=== PATIENT | male | born 1950 | race Caucasian/White ===

== ENCOUNTER → 2017-03-30 | Outpatient (CLI) | payer MEDICARE ==
[~2017-03-30] MED LIST: DESO60OI10 TP; DZPM2T PO; FLC1T PO; FLUT60LO2 TP; LORA10TA7 PO; METO-272 PO; MTP50T PO; ONDA8TAB9 PO; PNT40TEC PO; THIA100T12 PO
== END ==
LOC: CARD 09:39
PROVIDERS: ATTEND Physician Assistant
DX: I35.1 Nonrheumatic aortic (valve) insufficiency (principal); I65.23 Occlusion and stenosis of bilateral carotid arteries; I10 Essential (primary) hypertension; R00.0 Tachycardia, unspecified
CPT/HCPCS: 93306

== ENCOUNTER → 2018-02-27 | Outpatient (CLI) | payer MEDICARE ==
--- NOTE | 2018-02-27 11:34 | Diagnostic Imaging Report ---
INDICATION: Dizziness and dyspnea. PA and lateral views of the chest were obtained. FINDINGS: The heart size, mediastinal configuration, and pulmonary vascularity are within normal limits. There is no pleural effusion, pneumothorax, or pneumonia. The osseous structures are unremarkable. IMPRESSION: No acute cardiopulmonary abnormality. Dictated by: Dictated on workstation # [id number]
== END ==
LOC: RAD 09:15
PROVIDERS: ATTEND Internal Medicine Cardiovascular Disease
DX: I65.23 Occlusion and stenosis of bilateral carotid arteries (principal); F10.10 Alcohol abuse, uncomplicated; R06.00 Dyspnea, unspecified; I10 Essential (primary) hypertension; R00.0 Tachycardia, unspecified; Z72.0 Tobacco use
CPT/HCPCS: 71046

== ENCOUNTER → 2019-03-11 | Outpatient (CLI) | payer MEDICARE | LOC: CARD 13:21 | PROVIDERS: ATTEND Internal Medicine Cardiovascular Disease | DX: I08.2 Rheumatic disorders of both aortic and tricuspid valves (principal); I65.29 Occlusion and stenosis of unspecified carotid artery; I10 Essential (primary) hypertension | CPT/HCPCS: 93306 ==

== ENCOUNTER → 2019-03-13 | Outpatient (CLI) | payer MEDICARE ==
[~2019-03-13] VITALS: Ht 170 cm; Wt 67.0 kg
[~2019-03-13] MED LIST changes: +CATHETER FLUSH 10 ML SYR IV PRN
[2019-03-13 09:41] VITALS: BP 139/95
--- NOTE | 2019-03-13 12:22 | STRESS TEST ---
DATE OF SERVICE: 03/13/2019 EXERCISE MYOVIEW STRESS TEST REPORT REFERRING PHYSICIAN: Dr. Tobin Fragoso. Baseline heart rate is 54. Baseline blood pressure 138/98. Baseline EKG is sinus rhythm with no ischemic changes. In summary, the patient was injected with 10.74 mCi of technetium-99 Myoview and the resting images were obtained. Then, the patient started exercising with a baseline heart rate, blood pressure and EKG mentioned above. The patient was able to exercise for a total of 6 minutes and 30 seconds on standard Stefan protocol. With peak exercise level, EKG was showing [address] depression in II, III, aVF. Blood pressure was 169/81. During recovery, heart rate and blood pressure returned to baseline. EKG returned to baseline. The resting and stress images were reviewed and compared in the short axis, horizontal long axis, and vertical long axis views. Review of the images showed diaphragmatic attenuation with decreased uptake involving the inferior wall, inferoapical segment and inferoseptum with subtle reversibility was noted. SSS is 5, SDS 1, TID value 1.01. On the gated images, the left ventricle appeared to be normal size with normal contractility. Calculated ejection fraction 61%. CONCLUSION: 1. Fair exercise tolerance, a total of 6 minutes 30 seconds on standard Stefan protocol, total of 7.7 METS achieving 95% of maximum expected heart rate. 2. Appropriate heart rate and blood pressure response to exercise returned to baseline during recovery. 3. Nondiagnostic EKG changes with exercise returned to baseline during recovery. 4. Diaphragmatic attenuation with typical male pattern. No significant ischemia or infarction was noted on SPECT images. 5. Normal left ventricular size with normal contractility. Calculated ejection fraction 61%. Job ID: [id number] DocumentID: [id number] Dictated Date: 03/13/2019 11:24:49 Commissary Worker Date: 03/13/2019 12:21:50 Dictated By: KALPESH RUSSELL MD
== END ==
LOC: CARD 07:25
PROVIDERS: ATTEND Internal Medicine Cardiovascular Disease
DX: I35.1 Nonrheumatic aortic (valve) insufficiency (principal); I65.29 Occlusion and stenosis of unspecified carotid artery; I10 Essential (primary) hypertension
CPT/HCPCS: 78452; 93017

== ENCOUNTER 2019-05-18 18:32 | Emergency (ER) | payer MEDICARE ==
[~2019-05-18] VITALS: Ht 170 cm; Wt 70.5 kg
[~2019-05-18 18:32] MED LIST changes: -CATHETER FLUSH 10 ML SYR IV PRN
--- NOTE | 2019-05-18 18:39 | NUR ---
PT TO ROOM 7 W/O INCIDENT. DR MORALES TO BEDSIDE
[2019-05-18] MEDS ORDERED: LIDOCAINE 2% 20 ML (XYLOCAINE) VIAL ONE (18:44)
[2019-05-18] MEDS ORDERED: TETANUS,DIPTH,PERTUSS P/F (BOOSTRIX) 0.5 ML VIAL IM ONE (18:45)
[2019-05-18] MEDS ORDERED: LIDOCAINE 2% 20 ML (XYLOCAINE) VIAL INJ ONE (18:45)
--- NOTE | 2019-05-18 19:12 | ED Upper Extremity ---
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 Nursing Sepsis Screen: No Definite Risk Source: patient Exam Limitations: no limitations (DOMINIK MORALES MD) History of Present Illness Date Seen by Provider: May 18, 2019 Time Seen by Provider: 18:36 Initial Comments Here with report of injury to the tip of the middle finger of the right hand from a table saw. He was running a board through when it kicked back and during his finger through the saw. His right third finger was caught and the tip was amputated about half-way down through the nail. Bleeding controlled. The board kicked up and did hit him in the face below the lip to the left of midline. That bleeding is controlled. Tetanus is not up-to-date. Denies other injury. Onset: just prior to arrival (proximal 30 minutes ago) Severity: moderate Pain/Injury Location: right 3rd finger Method of Injury: incised Modifying Factors: Improves With Immobilization (DOMINIK MORALES MD) Allergies and Home Medications Allergies Coded Allergies: No Known Drug Allergies (Unverified , 05/19/13) Home Medications Diazepam 2 Mg Tab, 1 EACH PO QID, (Reported) Folic Acid 1 Mg Tablet, 1 MG PO DAILY, (Reported) Loratadine 10 Mg Tablet, 10 MG PO HS, (Reported) Metoprolol Succinate 50 Mg Tab.sr.24h, 1 EACH PO HS, (Reported) Metoprolol Tartrate 50 Mg Tablet, 0.5 EACH PO BID, (Reported) Ondansetron Hcl 8 Mg/Tab Tab.rapdis, 8 MG PO Q6H, (Reported) Pantoprazole Sodium 40 Mg Tablet.dr, 1 TAB PO DAILY, (Reported) Thiamine Hcl 100 Mg Tablet, 100 MG PO DAILY, (Reported) Patient Home Medication List Home Medication List Reviewed: Yes (DOMINIK MORALES MD) Review of Systems Constitutional: no symptoms reported Respiratory: no symptoms reported Cardiovascular: no symptoms reported Musculoskeletal: see HPI, joint pain, muscle pain Skin: No change in color; lesions Psychiatric/Neurological: No Symptoms Reported (DOMINIK MORALES MD) Past Kdnoniv-Iwsijp-Ycqnhl Hx Past Med/Social Hx: Reviewed Nursing Past Med/Soc Hx (DOMINIK MORALES MD) Patient Social History Alcohol Use: Denies Use Recreational Drug Use: No Smoking Status: Current Everyday Smoker Recent Foreign Travel: No Contact w/Someone Who Travel: No Recent Infectious Disease Expo: No (DOMINIK MORALES MD) Immunizations Up To Date Tetanus Booster (TDap): Unknown PED Vaccines UTD: No (DOMINIK MORALES MD) Past Medical History Surgeries: Yes Respiratory: Yes ("SMOKERS LUNG") Cardiac: Yes Neurological: No Reproductive Disorders: No Gastrointestinal: No Musculoskeletal: No Endocrine: No Cancer: No Psychosocial: No Integumentary: No Blood Disorders: No Adverse Reaction/Blood Tranf: No (DOMINIK MORALES MD) Family Medical History Reviewed Nursing Family Hx (DOMINIK MORALES MD) Alcoholism Aphasia 09 BROTHER, Onset:30's - 40 09 BROTHER, Onset:Unknown Family history: Cardiovascular disease 09 BROTHER, Onset:50's - 60 Kidney disease 09 BROTHER, Onset:Unknown Physical Exam Vital Signs Vital Signs - First Documented 05/18/19 18:36 Temp 37.4 Pulse 117 Resp 20 B/P (MAP) 168/85 (112) Pulse Ox 95 O2 Delivery Room Air (AMAYA HATFIELD APRN) Vital Signs Capillary Refill : Less Than 3 Seconds (DOMINIK MORALES MD) Height, Weight, BMI Height: 5'7.00" Weight: 148lbs. 0.0oz. 67.585008gh; 24.00 BMI Method: General Appearance: WD/WN, no apparent distress Cardiovascular: regular rate, rhythm, no murmur Respiratory: lungs clear, normal breath sounds Hand: Right, laceration (distal tip amputated from the right third finger about half-way through the nail. Bone exposed within the wound. Otherwise good range of motion of the hand and finger.), nail injury, soft tissue tenderness Neurologic/Psychiatric: alert, oriented x 3 Skin: warm/dry, other (abrasion noted to the face below the lip on the chin on the left side that is superficial with bleeding controlled.) (DOMINIK MORALES MD) Progress/Results/Core Measures Results/Orders Medications Given in ED Current Medications Medications Dose Ordered Sig/Johnaa Route Start Time Stop Time Status Last Admin Dose Admin Diphtheria/ Tetanus/Acell Pertussis 0.5 ml ONCE ONCE IM 05/18/19 18:45 05/18/19 18:46 DC 05/18/19 19:01 0.5 ML Lidocaine HCl 20 ml ONCE ONCE INJ 05/18/19 18:45 05/18/19 18:46 DC 05/18/19 19:00 20 ML (AMAYA HATFIELD APRN) Vital Signs/I&O 05/18/19 18:36 Temp 37.4 Pulse 117 Resp 20 B/P (MAP) 168/85 (112) Pulse Ox 95 O2 Delivery Room Air (AMAYA HATFIELD APRN) Blood Pressure Mean: 112 Progress Progress Note : Progress Note Seen and evaluated. Tetanus updated. Digital block right third finger with 2% lidocaine approximately 7 mL. Excellent anesthesia. X-ray right third finger. Patient will need bone end removed and wound closure. This will be done by Amaya Hatfield APRN. Monitor patient. (DOMINIK MORALES MD) Departure Communication (Admissions) 1909-Dr. Morales did a digital block to the middle finger right hand. This resulted in good anesthesia. Fingertip was irrigated, The periosteum/nailbed was lifted off of the dorsal aspect of the exposed distal phalanx and the soft tissues on the lateral medial and had side of the finger were bluntly dissected off exposed phalanx. Bone rongeurs were used to trim the exposed bone, size 3-0 Vicryl sutures total of 4 of these were placed to cover the exposed bone with soft tissue. The fingernail itself was trimmed but left in place in the proximal nailfold as a splint for future nail growth. This was covered with Xeroform, tube gauze (AMAYA HATFIELD APRN) Impression Primary Impression: Finger amputation, traumatic Disposition: HOME, SELF-CARE Condition: Stable Departure-Patient Inst. Decision time for Depature: 19:48 (AMAYA HATFIELD APRN) Referrals: ELSY ABDULLAHI CHAD C MD (PCP/Family) Primary Care Physician Patient Instructions: Laceration Repair With Stitches (DC) Add. Discharge Instructions: 1. Return to ER for any concerns 2. Follow-up with your doctor next week 3. Antibiotics as directed. Pain medication as needed for pain. Follow-up with Dr. Abdullahi Monday at 1 PM for wound check. All discharge instructions reviewed with patient and/or family. Voiced understanding. Scripts Hydrocodone/Acetaminophen ([place] 5-325 Tablet) 1 Each Tablet 1 TAB PO Q6H for Pain MDD 10 TABS for 7 Days, #10 TAB Prov: AMAYA HATFIELD APRN 05/18/19 Cephalexin (Keflex) 500 Mg Capsule 500 MG PO QID, #20 CAP Prov: AMAYA HATFIELD APRN 05/18/19 DOMINIK MORALES MD May 18, 2019 19:12 AMAYA HATFIELD APRN May 18, 2019 19:47
--- NOTE | 2019-05-18 19:15 | Diagnostic Imaging Report ---
EXAM: FINGER(S) INDICATION: Right 3rd finger trauma. COMPARISON: None. FINDINGS: Amputation of the right 3rd distal phalanx tuft. No other fractures. Multiple metallic radiopaque foreign bodies may be external to the patient. These are located near the 2nd and 5th distal metacarpals and ulnar styloid. IMPRESSION: 1. Amputation of the 3rd distal phalanx tuft. 2. Multiple metallic radiopaque foreign bodies may be external to the patient. Dictated by: Dictated on workstation # [id number]
[2019-05-18] MEDS ORDERED: CEPH-507 PO (19:49)
[2019-05-18] MEDS ORDERED: HYDR-4226 PO (19:49)
[2019-05-18] MEDS ORDERED: WATER (STERILE) FOR INJECTION 10 ML ONE (19:57)
[2019-05-18] MEDS ORDERED: RX-OXYCODONE/APAP 5-325 MG #4 TAB PK PO PRN (20:00)
[2019-05-18] MEDS ORDERED: ceFAZolin INJECTION 1,000 MG VIAL IM ONE (20:00)
[2019-05-18 20:09] VITALS: BP 167/89
== END 2019-05-18 20:13 | disposition home or self-care (01) ==
LOC: EDUNIT# 18:32 → ER 18:34
DX: S68.112A Complete traumatic metacarpophalangeal amputation of right middle finger, initial encounter (principal); S00.81XA Abrasion of other part of head, initial encounter; F17.200 Nicotine dependence, unspecified, uncomplicated; Z23 Encounter for immunization; Z82.49 Family history of ischemic heart disease and other diseases of the circulatory system; W31.2XXA Contact with powered woodworking and forming machines, initial encounter
CPT/HCPCS: 11720; 12041; 64450; 73140; 90471; 90715; 96372

== ENCOUNTER → 2021-12-27 | Outpatient (CLI) | payer MEDICARE ==
[~2021-12-27] MED LIST changes: +CEPH-507 PO; +HYDR-4226 PO
== END ==
LOC: CARD 08:38
PROVIDERS: ATTEND Internal Medicine Cardiovascular Disease
DX: I10 Essential (primary) hypertension (principal); I25.10 Atherosclerotic heart disease of native coronary artery without angina pectoris; I35.0 Nonrheumatic aortic (valve) stenosis
CPT/HCPCS: 93306

== ENCOUNTER → 2022-08-10 | Outpatient (CLI) | payer MEDICARE ==
[~2022-08-10] VITALS: Ht 170 cm; Wt 66.0 kg
[~2022-08-10] MED LIST changes: +CATHETER FLUSH 10 ML SYR IVP PRN
[2022-08-10 09:30] VITALS: BP 144/77
--- NOTE | 2022-08-10 15:04 | Cardiology Stress Test Report ---
Stress Test Report Date of Procedure/Referring: Date of Procedure: Aug 10, 2022 PCP Tobin Chang MD Admitting Physician Admitting Physician: Attending Physician: Yaneli Chauhan MD Indications: HTN Baseline Heart Rate: 55 Baseline Blood Pressure: Blood Pressure Systolic: 144 Blood Pressure Diastolic: 77 Vital Signs Date Time Temp Pulse Resp B/P (MAP) Pulse Ox O2 Delivery O2 Flow Rate FiO2 08/10/22 09:30 56 144/77 (99) Baseline Vital Signs Vital Signs Date Time Temp Pulse Resp B/P (MAP) Pulse Ox O2 Delivery O2 Flow Rate FiO2 08/10/22 09:30 56 144/77 (99) Baseline EKG: Baseline EKG: NSR Summary: After explaining the procedure and details to the patient, he signed the cons ent and was brought to the stress nuclear laboratory. Patient exercised on standard Stefan protocol, EKG, heart rate and blood pressure were monitored continuously, resting and stress doses of radio tracer were injected, imaging was acquired and reviewed in the short axis, horizontal long axis and vertical long axis views Patient was able to exercise for a total of 5.30 minutes on Stefan protocol, METs 6.6 Maximum heart rate 136 Maximum blood pressure 216/86 Stress EKG, Minimal nondiagnostic changes Recovery EKG, Return to baseline TID: 0.99 SSS: 8 SDS: 3 EF: 67 Conclusion: Fair exercise tolerance for 5 minutes and 30 seconds on standard Stefan protocol, 6.6 METS achieving 93% of maximal expected heart rate Appropriate heart rate response to exercise with hypertensive response to exercise with peak blood pressure 216/86 return to baseline during recovery Nondiagnostic EKG changes with exercise return to baseline during recovery Diaphragmatic attenuation with reversible ischemia involving the mid to apical inferior wall and inferolateral wall Normal left ventricular size, ejection fraction 67% Copy Copies To 1: TOBIN CHANG MD, BASHAR J MD Aug 10, 2022 15:04
== END ==
LOC: CARD 07:38
PROVIDERS: ATTEND Internal Medicine Cardiovascular Disease
DX: I10 Essential (primary) hypertension (principal); I25.10 Atherosclerotic heart disease of native coronary artery without angina pectoris
CPT/HCPCS: 78452; 93017; A9502

== ENCOUNTER 2022-08-17 10:49 | Day surgery (SDC) | payer MEDICARE ==
[~2022-08-17] VITALS: Ht 170 cm; Wt 68.0 kg
[2022-08-17] VITALS (8 sets, daily range): BP systolic 114–140; BP diastolic 62–88
[~2022-08-17 10:49] MED LIST changes: -CATHETER FLUSH 10 ML SYR IVP PRN
[2022-08-17] MEDS ORDERED: LIDOCAINE 1% INJ 20 ML VIAL ONE (10:56)
[2022-08-17] MEDS ORDERED: HEParin (CATH LAB) 2,000 ML IV ONE (10:56)
[2022-08-17] MEDS ORDERED: NS IV 1000 ML 1,000 ML ONE (10:56)
[2022-08-17] MEDS ORDERED: NS IV 1000 ML 1,000 ML IV ONE (11:00)
--- NOTE | 2022-08-17 11:35 | Diagnostic Imaging Report ---
CLINICAL INDICATIONS: Pre-heart catheter chest x-ray. EXAM: Portable chest x-ray upright view. COMPARISON: None. FINDINGS: Lungs/pleura: Lungs are clear. There is no pneumothorax. There is no pleural effusion. Mediastinum: Unremarkable. Pulmonary vasculature: Unremarkable. Heart: Unremarkable. Bones/extrathoracic soft tissue: There are small degenerative spurs involving the thoracic spine. IMPRESSION: There is no radiographic evidence of acute cardiopulmonary process. Dictated by: Dictated on workstation # [id number]
[2022-08-17 11:37] LABS: HEMATOCRIT 44 % (40-54); HEMOGLOBIN 14.8 g/dL (13.3-17.7); MEAN CORPUSCULAR HEMOGLOBIN 30 pg (25-34); MEAN CORPUSCULAR HGB CONC 34 g/dL (32-36); MEAN CORPUSCULAR VOLUME 90 fL (80-99); MEAN PLATELET VOLUME 10.6 fL (9.0-12.2); PLATELET COUNT 256 10^3/uL (130-400); WHITE BLOOD COUNT 6.1 10^3/uL (4.3-11.0)
[2022-08-17 11:54] LABS: INR 0.9 (0.8-1.4); PROTHROMBIN TIME PATIENT 12.2 SEC (12.2-14.7)
[2022-08-17 12:04] LABS: ALBUMIN 4.5 GM/DL (3.2-4.5); BILIRUBIN,TOTAL 0.7 MG/DL (0.1-1.0); CALCIUM 9.8 MG/DL (8.5-10.1); CREATININE SERUM 1.17 MG/DL (0.60-1.30); POTASSIUM 3.9 MMOL/L (3.6-5.0); TOTAL PROTEIN 7.6 GM/DL (6.4-8.2)
[2022-08-17] MEDS ORDERED: ATOR20TA66 PO (12:04)
[2022-08-17] MEDS ORDERED: HYDR25TA4 PO (12:04)
[2022-08-17] MEDS ORDERED: SAW450CA7 PO (12:04)
[2022-08-17] MEDS ORDERED: CALC-823 PO (12:04)
[2022-08-17] MEDS ORDERED: PANT40TA52 PO (12:04)
[2022-08-17] MEDS ORDERED: ZINC50TA51 PO (12:04)
[2022-08-17] MEDS ORDERED: ACET325T38 PO (12:04)
[2022-08-17] MEDS ORDERED: MAGN400T39 PO (12:04)
[2022-08-17] MEDS ORDERED: METO50TA7 PO (12:04)
[2022-08-17] MEDS ORDERED: OMEG100032 PO (12:04)
[2022-08-17] MEDS ORDERED: LOSA25TA41 PO ×2 (12:04)
[2022-08-17] MEDS ORDERED: POTA99CA PO (12:04)
[2022-08-17] MEDS ORDERED: fentaNYL INJ 100 MCG/2 ML AMP ONE (12:19)
[2022-08-17] MEDS ORDERED: MIDAZOLAM 5 MG/5 ML (VERSED) VIAL ONE (12:19)
--- NOTE | 2022-08-17 12:26 | Cardiac Procedure Note-CS/ASA ---
Pre-Procedure Note Pre-Op Procedure Note Date of Available H&P: Aug 11, 2022 Date H&P Reviewed: Aug 17, 2022 Time H&P Reviewed: 12: History & Physical: H&P Reviewed, Patient Examed, No changes noted Pre-Operative Diagnosis: CAD Moderate Sedation PreProcedure Time 12: ASA Score 3 Airway Lungs Heart ASA score ASA 1: a normal healthy patient ASA 2: a patient with a mild systemic disease (mid diabetes, controlled hypertension, obesity ASA 3: a patient with a severe systemic disease that limits activity (angina, COPD, prior Myocardial infarction) ASA 4: a patient with an incapacitating disease that is a constant threat to life (CHF, renal failure) ASA 5: a moribund patient not expected to survive 24 hrs. (ruptured aneurysm) ASA 6: a declared brain- patient whose organs are being harvested. For emergent operations, add the letter E after the classification Mallampati Classification Grade 3 Sedation Plan Analgesia, Amnesia, Plan communicated to team members, Discussed options with patient/fam, Discussed risks with patient/fam The patient is an appropriate candidate to undergo the planned procedure, sedation, and anesthesia. The patient immediately re-assessed prior to indication. KALPESH RUSSELL MD Aug 17, 2022 12:26
[2022-08-17] MEDS ORDERED: HEParin 1000 UNIT/ML (10ML VIAL) FOR BOLUS ONE (12:57)
[2022-08-17] MEDS ORDERED: NITRO DRIP 25000 MCG/D5W 0 ML IV ONE (12:59)
--- NOTE | 2022-08-17 13:14 | Discharge Inst-Post CATH ---
Discharge Inst-CATH/EP Problems Reviewed?: Yes Post Cardiac Cath/EP D/C Inst Follow Up/Plan Appointment with Dr. Chauhan's office in 2 to 4 weeks <b>CARDIAC CATH/EP PROCEDURE DISCHARGE INSTRUCTIONS</b> ACTIVITY * Go Home directly and rest. * Limit activity of the leg (or wrist if it was used) for 7 days including aer obics, swimming, jogging, bicycling, etc. * Restrict stair-climbing for 7 days if possible, if not, climb up with your non-cath leg, then bring together on the same step. * Avoid lifting, pushing, pulling or excessive movement of the affected extremi ty for 7 days. * Customary sexual activity may be resumed after 2 days-use caution not to use a position that strains or causes pain to the affected extremity. * No driving for 24 hours. * NO SMOKING. * Avoid straining for bowel movements for 7 days. * Gentle walking on level ground is allowed. * Returning to work will depend on the type of procedure and the results. Your doctor will discuss this with you. CALL YOUR DOCTOR FOR ANY OF THE FOLLOWING: *If bleeding from the puncture site occurs- Apply gentle pressure to site with clean cloth and call your doctor or EMS. * If a knot or lump forms under the skin, increases in size, or causes pain. * If bruising appears to be worsening or moving further down your leg instead of disappearing. * Temperature above 101 F. CARE OF YOUR GROIN INCISION; * Bruising or purple discoloration of the skin near the puncture site is common. * You may shower only, no bathtub bathing for 5 days. Be careful to avoid slipping as your leg may feel stiff. * If a closure device was used on your femoral artery, please see the attached guide regarding care of the device and your leg. * Leave dressing on FOR 24 hours. CARE OF YOUR WRIST INCISION; * Bruising or purple discoloration of the skin near the puncture site is common. * You may shower. * DO NOT submerge wrist. * Leave dressing on FOR 24 hours. KALPESH CHAUHAN MD Aug 17, 2022 13:14
[2022-08-17] MEDS ORDERED: NS IV 1000 ML 1,000 ML IV SCH (13:15)
[2022-08-17] MEDS ORDERED: PATIENT MAY USE OWN MEDS, ALL PO SCH (13:15)
--- NOTE | 2022-08-17 13:18 | Cardiac Cath Report ---
Cardiac Cath Report Physician (s)/Transcription Coordinator (s) Physician KALPESH RUSSELL MD Pre-Procedure Diagnosis Pre-Procedure Diagnosis: CAD Post-Procedure Note Procedure Start Date: Aug 17, 2022 Name of Procedure: Left heart catheterization Aortic arch angiogram IFR to the circumflex artery Findings/Procedure Note PROCEDURE NOTE: 72-year-old gentleman with history of coronary artery disease, hypertension, had an abnormal stress test scheduled for cardiac catheterization possible PTCA. After explaining the procedure to the patient, all pros and cons were explained, all questions were answered. The patient signed the consent and then he was placed in the cardiac catheterization laboratory. Groin was prepped in SL fashion local anesthesia was used. Sheath placed in the right femoral artery. Oralia' right and left catheter were used to access the coronary system. Pigtail was used to access the left ventricular cavity. Left ventriculogram was not done, pressure was measured Aortic arch angiogram was done due to the heavy calcification in the aortic arch that was noted. Patient received 5000 units of heparin, Oralia left guide was advanced to the left coronary system, IFR wire was advanced to the circumflex and parked in the distal circumflex artery, IFR measurement was 0.95. Wire was removed, no complication noted At the end of the procedure the sheath was removed. Closure device was deployed FINDINGS: Hemodynamics LV 121/12, end-diastolic pressure of 12 Aorta 107/51 mean of 65 ANATOMY: Left Main is free of obstructive disease Left Anterior Descending is slightly tortuous with mild disease nonobstructive disease Left Circumflex is a dominant artery with 60 to 70% stenosis in the mid circumflex artery, IFR was 0.95, the lesion is nonobstructive. Right Coronary Artery is small nondominant artery with no obstructive disease LV Gram was not done, pressure was measured Aorta evaluation done with aortic arch angiogram, normal aortic arch, no dissection or aneurysm was noted, normal origin of the brachiocephalic artery, left carotid and left subclavian arteries Dominance left circumflex artery CONCLUSION: 60% stenosis in the mid circumflex artery, IFR was 0.95, nonobstructive disease otherwise nonobstructive coronary artery disease Normal left ventricular end-diastolic pressure Calcified aortic arch, no dissection or aneurysm was noted DISCUSSION AND RECOMMENDATION: Continue to maximize medical therapy Anesthesia Type: Conscious Sedation Estimated blood loss (mL): 15 ml Contrast Amount: 65 ml Total Radiation Dose: 352 mGy Post-Procedure Diagnosis Post-operative diagnosis: Chest pain Coronary artery disease Hypertension Hyperlipidemia KALPESH RUSSELL MD Aug 17, 2022 13:18
== END 2022-08-17 17:33 | disposition home or self-care (01) ==
LOC: CATH 10:49 → SDC 13:52 → CATH 17:33
PROVIDERS: ATTEND Internal Medicine Cardiovascular Disease
DX: I25.10 Atherosclerotic heart disease of native coronary artery without angina pectoris (principal); I10 Essential (primary) hypertension; E78.5 Hyperlipidemia, unspecified; I35.0 Nonrheumatic aortic (valve) stenosis; I35.1 Nonrheumatic aortic (valve) insufficiency; I65.23 Occlusion and stenosis of bilateral carotid arteries; R00.0 Tachycardia, unspecified; E78.2 Mixed hyperlipidemia; F17.210 Nicotine dependence, cigarettes, uncomplicated; Z79.899 Other long term (current) drug therapy; Z86.59 Personal history of other mental and behavioral disorders
CPT/HCPCS: 36221; 71045; 80053; 80061; 85027; 85610; 85730; 87081; 93005; 93458; 93571; C1760; C1769; C1887; C1894; 36415